=== PATIENT | male | born 1990 | race Caucasian/White ===

== ENCOUNTER 2023-12-10 04:24 | Emergency (ER) | payer MEDICAID, OTHER ==
[~2023-12-10] VITALS: Ht 177.8 cm; Wt 78.8 kg
[2023-12-10 04:38] VITALS: BP 123/78; RESP 16; TEMP 98.4; O2SAT 99
[2023-12-10 06:20] LABS: CHLORIDE 106 mEq/L (98-107); POTASSIUM 4.3 mEq/L (3.5-5.1); SODIUM 137 mEq/L (136-145)
[2023-12-10 06:21] LABS: CALCIUM 9.8 mg/dL (8.7-10.4); CARBON DIOXIDE 28 mEq/L (21-32)
[2023-12-10 06:24] LABS: INR 1.1; PROTHROMBIN TIME 11.9 sec (9.6-11.0)
[2023-12-10 06:26] LABS: CREATININE 1.1 mg/dL (0.6-1.3); GLUCOSE 99 mg/dL (70-105); UREA NITROGEN BLOOD 12 mg/dL (9-23)
[2023-12-10 06:28] LABS: ALANINE AMINOTRANSFERASE 20 IU/L (10-49); ALBUMIN 4.7 g/dL (3.2-4.8); ASPARTATE AMINOTRANSFERASE 19 IU/L (<34); BASOPHILS % 0.6 % (0.0-2.0); BILIRUBIN TOTAL 0.5 mg/dL (0.1-1.0); EOSINOPHILS % 2.6 % (0.0-5.0); HEMOGLOBIN. 16.9 g/dL (14.0-18.0); LYMPHOCYTES % 15.6 % (20.0-50.0); MEAN CORPUSCULAR HEMOGLOBIN 31.4 pg (28.0-32.0); MEAN CORPUSCULAR HGB CONC 34.4 g/dL (31.0-37.0); MEAN CORPUSCULAR VOLUME 91.3 fL (80.0-94.0); MEAN PLATELET VOLUME 8.2 fl (7.4-10.4); NEUTROPHILS % 74.2 % (40.0-76.0); PLATELET 325 x1000/uL (130-400); PROTEIN TOTAL 7.2 g/dL (6.0-8.3); RED BLOOD CELL COUNT 5.37 mill/uL (4.7-6.1); RED CELL DISTRIBUTION WIDTH 13.3 % (11.6-14.6); WHITE BLOOD COUNT 9.9 x1000/uL (4.5-11.0)
[2023-12-10 07:37] LABS: ETHANOL BLOOD < 10 mg/dL (<10)
[2023-12-10] MEDS ORDERED: POLY17PO3 MT (07:56)
[2023-12-10 08:45] VITALS: PULSE 16
[2023-12-10] MEDS: LACTULOSE 20G/30ML UDC PO ONE (08:45)
== END 2023-12-10 09:37 | disposition home or self-care (01) ==
LOC: ER 04:24
DX: K59.00 Constipation, unspecified (principal)
CPT/HCPCS: 36415; 80053; 80320; 85025; 99283; G0480